=== PATIENT | male | born 1970 | race Two or more races ===

== ENCOUNTER 2023-07-22 10:24 | Emergency (ER) | payer OTHER ==
[~2023-07-22] VITALS: Ht 182.9 cm; Wt 84.8 kg
[2023-07-22] MEDS ORDERED: COZAAR50 MG PO (10:49)
[2023-07-22 15:31] LABS: HEMATOCRIT 43.9 % (39.0-48.0); HEMOGLOBIN 15.4 g/dL (13-16.00); MEAN CELL VOLUME 82.6 fL (80.0-100.00); MEAN CORPUSCULAR HEMOGLOBIN 28.9 pg (27.00-32.0); PLATELET COUNT 245 K/uL (150-450); RED BLOOD COUNT 5.32 M/uL (4.00-6.00); RED CELL DISTRIBUTION WIDTH 13.7 % (11.5-14.5)
[2023-07-22 15:36] LABS: PH,URINE 5.5 (5.0-8.0); URINE APPEARANCE Cloudy; URINE BILIRRUBIN Negative (NEGATIVE); URINE BLOOD Trace; URINE COLOR Yellow; URINE GLUCOSE Negative (NEGATIVE); URINE LEUKOCYTE Negative; URINE NITRATE Negative; URINE PROTEIN Negative (NEGATIVE); URINE UROBILINOGEN 0.2 E.U./dl
[2023-07-22 15:39] LABS: URINE RBC 2.7 uL (0.0-20.8)
[2023-07-22 16:00] LABS: CALCIUM 9.7 mg/dL (8.5-10.1); CREATININE SERUM 0.8 mg/dL (0.70-1.30); GFR 101.51; POTASSIUM 4.09 mEq/L (3.5-5.1)
[2023-07-22 17:25] LABS: URINE BACTERIA 0 uL (0.0-1933); URINE WBC 0 uL (0.0-23.2)
== END 2023-07-22 21:48 | disposition home or self-care (01) ==
LOC: ER 10:24
PROVIDERS: General Practice
DX: N50.811 Right testicular pain (principal); I10 Essential (primary) hypertension